=== PATIENT | male | born 1945 | race Caucasian/White ===

== ENCOUNTER 2023-10-10 22:05 | Emergency (ER) | payer MEDICARE, BC ==
[~2023-10-10] VITALS: Ht 177.8 cm; Wt 68.0 kg
[2023-10-10 22:35] VITALS: TEMP 98.2
[2023-10-10] MEDS ORDERED: ASPIRIN 325 MG TABLET ONE (22:37)
[2023-10-10] MEDS ORDERED: MAG HYDROX/AL HYDROX/SIMETH 30 ML UDC ONE (22:52)
[2023-10-10] MEDS: MAG HYDROX/AL HYDROX/SIMETH 30 ML UDC PO ONE (22:58)
[2023-10-10] MEDS ORDERED: ASPIRIN 325 MG TABLET PO ONE (23:00)
[2023-10-10 23:09] LABS: BASOPHILS # (AUTO) 0.1 K/uL (0.0-0.2); BASOPHILS % (AUTO) 0.8 % (0.0-2.0); HEMATOCRIT 34 % (39-51); HEMOGLOBIN 11.5 g/dL (13.5-17.5); LYMPHOCYTES # (AUTO) 1.3 K/uL (0.8-4.8); MEAN CORPUSCULAR HEMOGLOBIN 31 PG (26.0-33.0); MEAN CORPUSCULAR HGB CONC 34 g/dl (31.0-36.0); MEAN CORPUSCULAR VOLUME 91 fL (80-96); MONOCYTES # (AUTO) 0.8 K/uL (0.1-1.30); MONOCYTES % (AUTO) 6.7 % (2.0-12.0); NEUTROPHILS # (AUTO) 9.6 K/uL (1.8-8.9); NEUTROPHILS % (AUTO) 81.5 % (43.0-81.0); PLATELET COUNT (AUTO) 244 K/uL (150-450); RED BLOOD CELL COUNT(AUTO) 3.77 MIL/uL (4.5-6.0); RED CELL DISTRIBUTION WIDTH 12.8 % (11.5-15.0); WHITE BLOOD COUNT (AUTO) 11.7 K/uL (4.3-11.0)
[2023-10-10 23:24] LABS: CALCIUM, SERUM 9.1 mg/dL (8.5-10.1); CARBON DIOXIDE 27 mmol/L (21-32); CHLORIDE 104 mmol/L (98-107); CREATININE 2.4 mg/dL (0.6-1.3); GLUCOSE 107 mg/dL (74-106); POTASSIUM 5.2 mmol/L (3.5-5.1); SODIUM SERUM 137 mmol/L (136-145); UREA NITROGEN, BLOOD 36 mg/dL (7-18)
[2023-10-10 23:31] LABS: ALANINE AMINOTRANSFERASE 11 U/L (12-78); ALBUMIN 2.9 g/dL (3.4-5.0); ALKALINE PHOSPHATASE 95 U/L (46-116); ASPARTATE AMINOTRANSFERASE 12 U/L (15-37); BILIRUBIN,DIRECT 0.2 mg/dL (0.0-0.2); BILIRUBIN,TOTAL 0.7 mg/dL (0.2-1.0); TOTAL PROTEIN, SERUM 7.1 g/dL (6.4-8.2)
[2023-10-10 23:32] LABS: INR 1.06 (0.91-1.10); PARTIAL THROMBOPLASTIN TIME 31.3 SEC (24.3-34.3); PROTHROMBIN TIME 11.2 SECS (9.2-11.1)
[2023-10-11] MEDS: IV NS 0.9% 500 ML BAG IV ONE (00:12)
[2023-10-11 01:51] VITALS: BP 133/78; O2SAT 99
== END 2023-10-11 01:51 | disposition home or self-care (01) ==
LOC: ER 22:22
DX: K21.9 Gastro-esophageal reflux disease without esophagitis (principal); E87.5 Hyperkalemia; E86.0 Dehydration
CPT/HCPCS: 99285; 71045; 93005; 85025; 80048; 80076; 36415 ×2; 84484 ×2; 85730; J7040

== ENCOUNTER 2025-02-02 12:11 | Emergency (ER) | payer MEDICARE, BC ==
[~2025-02-02] VITALS: Ht 185.4 cm; Wt 70.3 kg
[2025-02-02 12:57] VITALS: BP 133/92; TEMP 98.3; O2SAT 98
== END 2025-02-02 12:58 | disposition home or self-care (01) ==
LOC: ER 12:16
DX: I10 Essential (primary) hypertension (principal)

== ENCOUNTER 2025-04-06 13:28 | Emergency (ER) | payer MEDICARE, BC ==
[~2025-04-06] VITALS: Ht 185.4 cm; Wt 70.8 kg
[2025-04-06 13:59] VITALS: TEMP 98.4
[2025-04-06 14:15] VITALS: BP 134/80
[2025-04-06 15:08] VITALS: O2SAT 97
== END 2025-04-06 15:08 | disposition home or self-care (01) ==
LOC: ER 13:34
DX: M79.671 Pain in right foot (principal); I48.91 Unspecified atrial fibrillation; Z79.01 Long term (current) use of anticoagulants
CPT/HCPCS: 73630-TC